=== PATIENT | female | born 1975 | race Caucasian/White ===

== ENCOUNTER 2017-04-21 09:30 | Inpatient (IN) ==
[2017-04-16 13:52] LABS: Appearance,Urine CLEAR; Bilirubin,Urine NEG (NEG); Color,Urine YELLOW; Glucose,Urine (UA) NEGATIVE (NEG); Leukocyte Esterase,Urine NEG /uL (NEG); Protein,Urine NEG (NEG); Specific Gravity,Urine 1.008 (1.000-1.035); Urine Blood NEG mg/dL (<0.03); Urobilinogen,Urine NEG (NEG)
[2017-04-16 16:05] LABS: Basophils # (Auto) 0 K/mcL (0.0-0.3); Basophils % (Auto) 0.5 % (0.0-2.0); Eosinophils # (Auto) 0.3 K/mcL (0.0-0.7); Eosinophils % (Auto) 4.3 % (0.0-7.0); Granulocytes % (Auto) 55.4 % (38.0-78.0); Lymphocytes # (Auto) 2.2 K/mcL (1.5-4.8); Lymphocytes % (Auto) 31.1 % (15.5-49.0); Mean Cell Volume 90.7 fL (80.0-100.0); Mean Corpuscular HGB Conc 33.7 g/dL (31.0-36.0); Mean Corpuscular Hemoglobin 30.6 pg (26.0-34.0); Monocytes # (Auto) 0.6 K/mcL (0.1-0.9); Monocytes % (Auto) 8.7 % (1.0-12.0); Platelet Count 285 K/mcL (140-440); RBC 4.45 M/mcL (4.00-5.20); Red Cell Distribution Width 13.9 % (11.5-14.5)
[2017-04-16 16:36] LABS: Blood Urea Nitrogen 12 mg/dl (6-20)
[~2017-04-21 09:30] MED LIST: ACETAMINOPHEN 500 MG TABLET PO SCH; CELECOXIB 200 MG CAPSULE PO SCH; PREGABALIN 75 MG CAPSULE PO SCH; ceFAZolin 1 GM VIAL IV SCH; oxyCODONE 10 MG TAB.ER.12H PO SCH
[2017-04-21] MEDS ORDERED: KETOROLAC 30 MG, ROPIVACAINE HCL/PF 49.5 ML, EPINEPHrine 0.5 MG, 0.9 % SODIUM CHLORIDE ... IJ ONE (12:11)
[2017-04-21] MEDS ORDERED: IPRATROPIUM/ALBUTEROL 3 ML AMPUL.NEB NEB ONE ×2 (12:12→12:13)
[2017-04-21] MEDS ORDERED: ePHEDrine 50 MG/ML AMPUL IV ONE (12:40)
[2017-04-21] MEDS ORDERED: PROPOFOL 200 MG/20 ML VIAL IV ONE (12:40)
[2017-04-21] MEDS ORDERED: TRANEXAMIC ACID 1,000 MG/10 ML VIAL IV ONE (12:40)
[2017-04-21] MEDS ORDERED: ONDANSETRON 4 MG/2 ML VIAL IV ONE (12:40)
[2017-04-21] MEDS ORDERED: LIDOCAINE HCL/PF 100 MG/5 ML SYRINGE IV ONE (12:40)
[2017-04-21] MEDS ORDERED: PHENYLEPHRINE 10 MG/ML VIAL IV ONE (12:40)
[2017-04-21] MEDS ORDERED: MIDAZOLAM 5 MG/5 ML VIAL IV ONE (12:40)
[2017-04-21] MEDS ORDERED: SUCCINYLCHOLINE 20 MG/ML ML IV ONE (12:40)
[2017-04-21] MEDS ORDERED: DEXAMETHASONE 10 MG/ML VIAL IV ONE (12:40)
[2017-04-21] MEDS ORDERED: HETASTARCH 6% 500 ML BAG IV ONE (12:40)
[2017-04-21] MEDS ORDERED: GENTAMICIN SULFATE 800 MG/20 ML VIAL IR ONE (13:19)
--- NOTE | 2017-04-21 14:10 | Brief Operative Note ---
Date of procedure: 04/21/17 Pre-op diagnosis: right hip djd Post-op diagnosis: same Procedure: right mike Grafts/Implants: Yes Anesthesia: GETA Findings: left hip mike Complications: none Surgeon: Cuco Bass [place] Technician: Adan Wilhelm Estimated blood loss (cc): 150 Specimens Removed/Pathology: none sent Condition: stable Disposition: PACU
[2017-04-21] MEDS ORDERED: KETOROLAC 15 MG/ML VIAL IV PRN (14:11)
[2017-04-21] MEDS ORDERED: TRANEXAMIC ACID 1,000 MG/10 ML VIAL IV SCH (14:11)
[2017-04-21] MEDS ORDERED: ONDANSETRON 4 MG/2 ML VIAL IV PRN ×2 (14:11→14:38)
[2017-04-21] MEDS ORDERED: ACETAMINOPHEN 325 MG TABLET PO PRN (14:11)
[2017-04-21] MEDS ORDERED: FLEETS ADULT ENEMA PR PRN (14:11)
[2017-04-21] MEDS ORDERED: MAGNESIUM HYDROXIDE 30 ML ORAL.SUSP PO PRN (14:11)
[2017-04-21] MEDS ORDERED: POLYETHYLENE GLYCOL 3350 17 GM PACKET PO PRN (14:11)
[2017-04-21] MEDS ORDERED: BENZOCAINE/MENTHOL 1 LOZENGE PO PRN (14:11)
[2017-04-21] MEDS ORDERED: BISACODYL 10 MG SUPP.RECT PR PRN (14:11)
[2017-04-21] MEDS ORDERED: HYDROmorphone 2 MG/ML VIAL IV PRN (14:11)
[2017-04-21] MEDS ORDERED: ALBUTEROL SULFATE 1 PUFF INHALER INH PRN (14:14)
[2017-04-21] MEDS ORDERED: METHOTREXATE SODIUM IJ SCH (14:15)
[2017-04-21] MEDS ORDERED: ETANERCEPT 50 MG SQ SCH (14:15)
[2017-04-21] MEDS ORDERED: [UNRECOGNIZED DRUG - OTHER] IJ SCH (14:15)
[2017-04-21] MEDS ORDERED: NALOXONE HCL 0.4 MG/ML VIAL IV PRN (14:38)
[2017-04-21] MEDS ORDERED: METOPROLOL TARTRATE 5 MG/5 ML VIAL IV PRN (14:38)
[2017-04-21] MEDS ORDERED: IPRATROPIUM/ALBUTEROL 3 ML AMPUL.NEB NEB PRN (14:38)
[2017-04-21] MEDS ORDERED: ATROPINE SULFATE 0.4 MG/ML VIAL IV PRN (14:38)
[2017-04-21] MEDS ORDERED: diphenhydrAMINE 50 MG/ML VIAL IV PRN (14:38)
[2017-04-21] MEDS ORDERED: ePHEDrine 50 MG/ML AMPUL IV PRN (14:38)
[2017-04-21] MEDS ORDERED: KETOROLAC 30 MG/ML VIAL IV PRN (14:38)
[2017-04-21] MEDS ORDERED: FLUMAZENIL 0.1 MG/ML ML IV PRN (14:38)
[2017-04-21] MEDS ORDERED: fentaNYL 100 MCG/2 ML VIAL IV PRN (14:38)
[2017-04-21] MEDS ORDERED: METHOCARBAMOL 1,000 MG/10 ML VIAL IV PRN (14:38)
[2017-04-21] MEDS ORDERED: PROMETHAZINE 25 MG/ML VIAL IV PRN (14:38)
--- NOTE | 2017-04-21 15:02 | XRay Report ---
HISTORY: Reason for Exam:Post-op Total Hip FINDINGS: There is a well-positioned right total hip prosthesis. No fracture or dislocation are present and there are no abnormal soft tissue calcifications. Arthritis is seen in the facets bilaterally at L5-S1. IMPRESSION: Well-positioned right hip prosthesis Interpreted and Authenticated by: Mukund Sawyer 04/21/17
--- NOTE | 2017-04-21 16:04 | Operative Note ---
DATE OF OPERATION: 04/21/2017 PREOPERATIVE DIAGNOSIS: A 42-year-old female with right hip degenerative arthritis. POSTOPERATIVE DIAGNOSIS: A 42-year-old female with right hip degenerative arthritis. PROCEDURE: Right total hip arthroplasty using a superior posterior approach. SURGEON: Cuco Bass M.D. AUTOMOBILE LOCATOR: Adan Wilhelm PA-C. ANESTHESIA: General LMA by Tanya Finnegan CRNA. COMPLICATIONS: None. ESTIMATED BLOOD LOSS: 150 mL. BLOOD PRODUCTS GIVEN: None. IMPLANTS: Size 6 cementless stem, a 50 mm acetabular cup with a 25 mm screw with a 36 mm head liner. The ball was a ceramic head, negative 5 mm head. Leg lengths were equal. DESCRIPTION OF PROCEDURE: The patient was brought to the operating room and put to sleep with general LMA anesthesia. Once asleep, the patient had the right hip sterilely prepped and draped in the usual sterile fashion and confirmed as the operative site. The patient was placed in a [place] positioner on a left lateral position. Once in position, we sterilely prepped the right leg after confirming the operative leg with a timeout. Preop antibiotics were given. Tranexamic acid was given. A superior-posterior approach created. Through this we identified the fascial layer, incised this, taking care to avoid the IT band. We then exposed the superior posterior capsule which was released with the piriformis obturator internus which were tagged as well as the capsule. We dislocated the hip superiorly and then made our neck cut at 34 mm from the center of hip rotation. Once done, we then removed the femoral head which showed severe wear. We entered the acetabulum and then removed the labrum, reamed up to the size 50, implanted a 50 cup with a 25 mm screw. A 36 mm poly liner was placed. Once in place, we then prepared the femur, took an x-ray with a size 5 stem and a size 6 stem. With the size 6 stem, it slightly lengthened the leg about 3 mm. With this, we placed a negative 5 mm head which equally balanced the leg lengths and offset. There were no complications. We implanted the negative 5 mm head ceramic ball with a 6 mm stem, cementless. The patient tolerated this well without complication. RBH:lesvia Job ID: [id number] Doc ID: [id number] Cuco Bass MD
[2017-04-21] MEDS: 0.45 % SODIUM CHLORIDE 1,000 ML IV SCH (16:13)
[2017-04-21] MEDS: HYDROcodone/APAP 10/325MG TABLET PO PRN ×2 (16:30→21:35)
[2017-04-21] MEDS: metFORMIN 500 MG TABLET PO SCH (17:05)
[2017-04-21] MEDS ORDERED: SENNOSIDES 1 TABLET PO SCH (21:00)
[2017-04-21] MEDS ORDERED: TEMAZEPAM 15 MG CAPSULE PO PRN (21:00)
[2017-04-21] MEDS: ceFAZolin 1 GM VIAL IV SCH (21:33)
[2017-04-21] MEDS: DOCUSATE SODIUM 100 MG CAPSULE PO SCH (21:33)
[2017-04-21] MEDS: URSODIOL 300 MG CAPSULE PO SCH (21:33)
[2017-04-21] MEDS: BECLOMETHASONE DIPROPIONATE 80MCG INHALER INH SCH (21:34)
[2017-04-21] MEDS: ASPIRIN 325 MG ENTERIC COATED TABLET PO SCH (21:34)
[2017-04-21] MEDS: 0.9 % SODIUM CHLORIDE 10 ML SYRINGE IV SCH (21:36)
[2017-04-22] MEDS: 0.45 % SODIUM CHLORIDE 1,000 ML IV SCH (01:06)
[2017-04-22] MEDS: HYDROcodone/APAP 10/325MG TABLET PO PRN ×3 (01:30→10:07)
[2017-04-22] MEDS: ceFAZolin 1 GM VIAL IV SCH (04:33)
[2017-04-22] MEDS: 0.9 % SODIUM CHLORIDE 10 ML SYRINGE IV SCH (04:57)
[2017-04-22] MEDS: BECLOMETHASONE DIPROPIONATE 80MCG INHALER INH SCH ×2 (06:58→08:01)
[2017-04-22] MEDS ORDERED: OMEPRAZOLE 20 MG CAPSULE PO SCH (07:30)
[2017-04-22] MEDS ORDERED: LEVOTHYROXINE 75 MCG TABLET PO SCH (07:30)
--- NOTE | 2017-04-22 07:48 | Orthopedic Progress Note ---
Subjective Patient information: Note initiated : 04/22/17 at 7:47 am Service Date, if different from initiated Date: [] Patient: Tanya Maurice 42 y/o F admitted on 04/21/17 for Rt Total Hip Arthroplasty *!practice office associate!*. Chief Complaint: [Pt is stable this morning on post operative day 1 without any significant concerns or complaints. Patients vital signs have remained stable. Patients dressing is dry and is grossly instact from a neurovascular and motor standpoint. Patients 10 point ROS is otherwise negative. ] Objective Vital signs: Vital Signs Temp Pulse Resp BP BP Pulse Ox 04/22/17 04:58 94 04/22/17 04:00 97.8 F 90 14 93/59 94 04/22/17 03:00 94 04/22/17 01:00 94 04/22/17 00:00 98.5 F 89 14 105/64 93 04/21/17 23:00 93 04/21/17 21:00 95 04/21/17 20:00 97.9 F 102 H 14 92/57 95 04/21/17 19:00 95 04/21/17 17:49 98 04/21/17 17:25 99/65 98 04/21/17 16:55 98/63 97 04/21/17 16:25 106/65 97 04/21/17 16:10 100/68 98 04/21/17 15:54 94/61 100 04/21/17 15:40 95/65 99 04/21/17 15:25 99/65 96 04/21/17 15:13 97.6 F 96 H 8 L 114/69 100 04/21/17 14:59 98.1 F 99 H 24 H 120/71 98 04/21/17 14:43 97.9 F 95 H 13 110/67 99 04/21/17 14:38 97 H 17 100/64 04/21/17 14:33 93 H 17 90/44 97 04/21/17 14:28 97.8 F 99 H 18 104/40 96 04/21/17 10:18 97.5 F 18 121/84 96 04/21/17 09:30 18 Intake and Output 04/21/17 04/22/17 04/22/17 21:59 05:59 13:59 Intake Total 3880 / 3880 2345 / 2345 800 / 800 Output Total 2500 / 2500 1500 / 1500 700 / 700 Balance 1380 / 1380 845 / 845 100 / 100 Intake: IV 1000 / 1000 Sodium Chloride 0.45% 1,000 ml 1000 / 1000 @ 100 mls/hr IV .Q10H KAIN Rx#: [id number] Oral 1680 / 1680 1345 / 1345 800 / 800 IV - Manual Only 2200 / 2200 Output: Void Amount 1700 / 1700 1500 / 1500 700 / 700 Estimated Blood Loss 800 / 800 Other: Meal Dinner 2 pkg korin crackers Percent of Meal Consumed 100% 100% Feeding Ability Assist with Tray Set Up Independent # of times incontinent of 1 Bowels Weight 244 lb 8 oz Intake & Output: Intake & Output 04/21/17 04/22/17 04/22/17 21:59 05:59 13:59 Intake Total 3880 / 3880 2345 / 2345 800 / 800 Output Total 2500 / 2500 1500 / 1500 700 / 700 Balance 1380 / 1380 845 / 845 100 / 100 Weight 244 lb 8 oz Intake: IV 1000 / 1000 Sodium Chloride 0.45% 1,000 ml 1000 / 1000 @ 100 mls/hr IV .Q10H KAIN Rx#: [id number] Oral 1680 / 1680 1345 / 1345 800 / 800 IV - Manual Only 2200 / 2200 Output: Void Amount 1700 / 1700 1500 / 1500 700 / 700 Estimated Blood Loss 800 / 800 Other: Meal Dinner 2 pkg korin crackers Percent of Meal Consumed 100% 100% Feeding Ability Assist with Tray Set Up Independent # of times incontinent of 1 Bowels Incision: Yes healing Incision clean and dry: Yes Dressing: Yes clean, Yes dry Weight bearing status: full Neurological exam IM: Yes motor sensory intact, Yes neurovascular intact Extremities exam IM: Yes Foot pink and warm, Yes neurovascular intact - Labs CBC & BMP: 04/22/17 04:40 04/16/17 12:10 Labs: Orthopedic Labs 04/16/17 12:10 PT 12.5 INR 0.9 APTT 35 04/22/17 04/16/17 04:40 12:10 Hgb 13.6 Hct 28.5 L 40.3 Assessment and Plan (1) Hx of total hip arthroplasty The patient has been educated regarding dressing care, Physical Therapy recommendations, home exercises, restrictions, and follow up appointments. The patient has had all necessary DME prescribed. The patient has remained stable during their hospital course. The patient was discharge with a stable exam. Leave Dermabond patch intact until followup Status: Acute
--- NOTE | 2017-04-22 07:50 | Discharge Summary ---
Ortho Discharge - [facility] - Patient Instructions Diet: Regular Diet Activity: activity as tolerated, weight bearing as tolerated Total Hip Protocol: Follow activity instructions as provided by Physical Therapy. Dressing Care: May shower in 2 days Patient Education: Total Hip Replacement (DC) - Problem Maintenance (1) Hx of total hip arthroplasty Status: Acute - Follow Up Plan Follow Up Appointments: Adan Wilhelm PA-C [Physician Lead Medical Technologist] - 05/06/17 11:20 am Disposition: Home, Self-Care Prognosis: Good Rehab Potential: Good I certify that the patient requires SNF services: No Overall status at discharge: patient is progressing back to baseline - Orders For Discharge Prescriptions: Aspirin [Ecotrin] 325 mg PO BID #60 tab.ec Docusate Sodium [Colace] 100 mg PO BID #60 cap HYDROcodone/APAP 10/325MG [[place] 10-325Mg] 1 - 2 tab PO Q4HP PRN #75 tab PRN Reason: Pain Level 3-6
[2017-04-22] MEDS: URSODIOL 300 MG CAPSULE PO SCH (08:01)
[2017-04-22] MEDS: ASPIRIN 325 MG ENTERIC COATED TABLET PO SCH (08:03)
[2017-04-22] MEDS: DOCUSATE SODIUM 100 MG CAPSULE PO SCH (08:03)
[2017-04-22] MEDS: metFORMIN 500 MG TABLET PO SCH (08:03)
[2017-04-22] MEDS ORDERED: FOLIC ACID 1 MG TABLET PO SCH (09:00)
[2017-04-22] MEDS ORDERED: HYDROXYCHLOROQUINE 200 MG TABLET PO SCH (09:00)
[2017-04-22] MEDS ORDERED: VITAMIN D3 1,000 UNIT TABLET PO SCH (09:00)
[2017-04-22] MEDS ORDERED: DULoxetine 30 MG CAPSULE PO SCH (09:00)
== END 2017-04-22 10:15 | disposition home or self-care (01) | DRG 470 ==
LOC: MEDSUR 09:30
PROVIDERS: ADMIT Orthopaedic Surgery; ATTEND Orthopaedic Surgery